=== PATIENT | female | born 1975 | race Two or more races ===

== ENCOUNTER 2018-07-16 21:22 | Emergency (ER) | payer OTHER ==
[2018-07-17] MEDS: KETOROLAC 60 MG INJ IM (00:03)
[2018-07-17] MEDS: DEXAMETHASONE 10 MG/ML 1 ML INJ IM (00:03)
== END 2018-07-17 00:10 | disposition home or self-care (01) ==
LOC: FTE 07-17 00:10
DX: M25.50 Pain in unspecified joint (principal)
CPT/HCPCS: 81025; 87400; 96372; 99284-25